=== PATIENT | female | born 1975 | race Caucasian/White ===

== ENCOUNTER → 2025-01-14 09:40 | Outpatient (REF) | payer BC, SELFPAY | LOC: WDC 09:40 | PROVIDERS: ATTENDING PHYSICIAN Obstetrics & Gynecology; FAMILY PHYSICIAN Family Medicine | DX: N63.25 Unspecified lump in the left breast, overlapping quadrants (principal) | CPT/HCPCS: 76642; 77062; 77066 ==

== ENCOUNTER → 2025-01-20 11:35 | Outpatient (REF) | payer BC, SELFPAY ==
--- NOTE | 2025-01-21 10:52 | OID.BR.INTR ---
[facility] Breast Navigator - Initial
- -
Did not meet patient at time of biopsy. Will follow up per protocol.
== END ==
LOC: WDC 11:35
PROVIDERS: ATTENDING PHYSICIAN Obstetrics & Gynecology; FAMILY PHYSICIAN Family Medicine
DX: N63.21 Unspecified lump in the left breast, upper outer quadrant (principal); N63.13 Unspecified lump in the right breast, lower outer quadrant
CPT/HCPCS: 88305; 19083; A4648

== ENCOUNTER 2025-05-26 06:14 | Day surgery (SDC) | payer BC, SELFPAY ==
[2025-05-18 11:25] LABS: Hematocrit 40.0 % (37.0-47.0); Hemoglobin 12.9 g/dL (12.0-16.0); Mean Corp Hgb Conc. 32.3 g/dL (33.0-37.0); Mean Corpuscular Volume 93.2 fL (81.0-99.0); Nucleated Red Blood Cells % 0 %; Platelet Count 274 10^3/uL (130-400); Red Cell Dist. Width 13.2 % (11.5-14.5)
[2025-05-18 11:32] LABS: ALT (SGPT) 18 U/L (0-35); AST (SGOT) 18 U/L (14-36); Albumin 4.4 g/dl (3.5-5.0); Alkaline Phosphatase 53 U/L (38-126); Blood Urea Nitrogen 13 mg/dl (7-17); Calcium 9.1 mg/dl (8.4-10.2); Carbon Dioxide 28 mmol/L (22-30); Chloride 103 mmol/L (98-107); Glucose 84 mg/dl (70-99); Potassium 4.5 mmol/L (3.5-5.1); Sodium 138 mmol/L (135-145); Total Protein 7.0 g/dl (6.3-8.2); eGFR > 60.00
[2025-05-18 11:42] LABS: Prealbumin (Transthyretin) 24.8 mg/dl (17.6-36.0)
[2025-05-18 11:53] LABS: Vitamin D, 25-OH*** 31.3 ng/mL (30-80)
[2025-05-18 14:05] VITALS: BMI 28.6
[2025-05-21 15:14] LABS: 24 Hour Urine Total Volume Random mL; Creatinine, Urine per Volume 154 mg/dL; Iodine, Urine 240.8 ug/L (26.0-705.0); Iodine/Creatinine Ratio 156.4 ug/g CRT (35.0-540.0); Urine Collection Length Random hr
[2025-05-26 09:39] VITALS: BP 98/60; BMI 28.6
[2025-05-26] MEDS: TYLENOL 1000 MG PO (09:41)
[2025-05-26] MEDS: NORMOSOL-R/PLASMALYTE-A 1000 IV (09:48)
[2025-05-26] MEDS: LOVENOX 40 MG SC (10:10)
--- NOTE | 2025-05-26 11:54 | W.IMMPOSTOP ---
Surgical Immed Post Op Note
-
Primary Surgeon: Pascual
Assisting Surgeon: None
Pre-op Diagnosis: Fibroepithelial lesion left breast
Post-op Diagnosis: Same
Procedure Performed: Left lumpectomy
Anesthesia Type: TIVA
Specimen / Cultures: Left lumpectomy, superior margins
Estimated Blood Loss: 6cc
Complications: None
Operative Findings: None
[2025-05-26 11:55] VITALS: BP 103/47
--- NOTE | 2025-05-26 11:56 | OR.RPT ---
Operative Report
Operative Report
Date of procedure: 05/26/25
Surgeon: Pascual
Pre-operative DX: Fibroepithelial lesion left breast
Post-operative DX: Same
Procedure: Left lumpectomy
The patient is a 49 Y/O female who self-palpated a left breast mass and underwent work-up and core biopsy of 2 lesions identified in the left breast. 1 was consistent with a fibroadenoma but the other was a fibroepithelial lesion and a
phyllodestumor could not be ruled out. 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 Preoperatively, the patient complained about a superior cyst that she could feel which by ultrasound seemed more consistent with a smaller adjacent
fibroadenoma and that can be addressed intraoperatively. She presented to the same-day surgical services unit and was prepped. DVT and antibiotic prophylaxis were provided and she was transferred to the operating room. In the supine position
intravenous sedation was delivered. An ultrasound was performed to confirm the biopsied mass and to locate and identify the palpable mass that she was feeling. Again it was confirmed that this could be addressed through the operative incision.
Left breast was prepped and draped in usual sterile fashion. All team members performed an appropriate timeout. All tissues were anesthetized with 1% lidocaine plain and a curvilinear incision overlying the area the palpable mass was made sharply
with the cautery blade. Skin flaps were elevated with the cautery and a wide lumpectomy was performed using the cautery. The specimen was oriented and sent for permanent analysis. Careful inspection and palpation was performed and no additional
masses were felt. Hemostasis was maintained. Marcaine 0.5% plain was instilled into all tissues and the wound was closed using simple interrupted 3-0 plain and deep and intermediate tissue. Subcutaneous tissue was closed with simple interrupted
4-0 Monocryl's and a running subcuticular 4-0 Monocryl was used to close skin. Surgical glue and sterile compressive dressing was applied. All sponge needle and instrument counts were correct and the patient was transferred to the same-day
surgical services for recovery.
([id number])
[2025-05-26 12:00] VITALS: BP 101/59
[2025-05-26 12:15] VITALS: BP 104/60
[2025-05-26 12:30] VITALS: BP 108/56
[2025-05-26 12:45] VITALS: BP 108/65
[2025-05-26] MEDS: ROXICODONE 5 MG PO (13:15)
== END 2025-05-26 13:20 | disposition home or self-care (01) ==
LOC: SDS 06:14
PROVIDERS: ATTENDING PHYSICIAN Surgery; FAMILY PHYSICIAN Family Medicine
DX: D24.2 Benign neoplasm of left breast (principal); N60.12 Diffuse cystic mastopathy of left breast
CPT/HCPCS: 19301; 80053; 82306; 83018; 84134; 85025; 88305; 88307